=== PATIENT | male | born 1955 | race Caucasian/White ===

== ENCOUNTER → 2024-04-02 10:50 | Outpatient (REF) | payer MEDICARE, OTHER, SELFPAY | LOC: HWRAD 10:50 | PROVIDERS: ATTENDING PHYSICIAN Specialist; FAMILY PHYSICIAN Family Medicine | DX: Q61.02 Congenital multiple renal cysts (principal) | CPT/HCPCS: 76775 ==

== ENCOUNTER → 2025-04-15 11:23 | Outpatient (REF) | payer MEDICARE, OTHER, SELFPAY | LOC: HWRAD 11:23 | PROVIDERS: ATTENDING PHYSICIAN Specialist; FAMILY PHYSICIAN Family Medicine | DX: Q61.02 Congenital multiple renal cysts (principal) | CPT/HCPCS: 76775 ==